=== PATIENT | male | born 1950 | race Caucasian/White ===

== ENCOUNTER 2017-01-12 15:08 | Outpatient (CLI) | payer MEDICARE, BC ==
[2015-03-21 14:21] VITALS: O2SAT 98
== END 2017-01-12 15:09 | disposition home or self-care (01) | DRG 556 ==
LOC: CONVCARE 15:08
PROVIDERS: ATTEND Orthopaedic Surgery
DX: M25.551 Pain in right hip (principal); M48.8X6 Other specified spondylopathies, lumbar region; M51.36 Other intervertebral disc degeneration, lumbar region; M51.37 Other intervertebral disc degeneration, lumbosacral region
CPT/HCPCS: 72120

== ENCOUNTER 2017-02-14 07:23 | Day surgery (SDC) | payer MEDICARE, BC ==
[2017-02-14 07:49] VITALS: O2SAT 95
[2017-02-14] MEDS: TRIAMCINOLONE ACETONIDE 40 MG/ML SUS ONE ×2 (08:13→08:17)
[2017-02-14 08:31] VITALS: BP 106/61; PULSE 69; RESP 20; TEMP 97.4
== END 2017-02-14 08:45 | disposition home or self-care (01) | DRG 552 ==
LOC: SURG 07:23
PROVIDERS: ATTEND Nurse Anesthetist, Certified Registered
DX: M48.06 Spinal stenosis, lumbar region (principal); E11.9 Type 2 diabetes mellitus without complications
CPT/HCPCS: J3300

== ENCOUNTER 2017-03-15 10:57 | Day surgery (SDC) | payer MEDICARE, BC ==
[2017-03-15] MEDS: DEXAMETHASONE SOD PHOS PF 10 MG/ML SOL IJ ONE ×2 (11:28→11:36)
[2017-03-15 11:52] VITALS: BP 95/60; PULSE 77; RESP 20; TEMP 97.9; O2SAT 95
== END 2017-03-15 12:05 | disposition home or self-care (01) | DRG 552 ==
LOC: SURG 10:57
PROVIDERS: ATTEND Nurse Anesthetist, Certified Registered
DX: M54.5 Low back pain (principal); M54.16 Radiculopathy, lumbar region
CPT/HCPCS: 82962; J1100

== ENCOUNTER 2017-05-10 13:53 | Day surgery (SDC) | payer MEDICARE, BC ==
[2017-05-10 14:06] VITALS: RESP 16
[2017-05-10] MEDS ORDERED: BUPIVACAINE HCL 0.25% MPF 10 ML SOL INFIL ONE (14:32)
[2017-05-10] MEDS: DEXAMETHASONE SOD PHOS PF 10 MG/ML SOL IJ ONE ×2 (14:50→14:54)
[2017-05-10 15:18] VITALS: BP 113/73; PULSE 72; TEMP 98.6; O2SAT 98
== END 2017-05-10 15:35 | disposition home or self-care (01) | DRG 552 ==
LOC: SURG 13:53
PROVIDERS: ATTEND Nurse Anesthetist, Certified Registered
DX: M48.062 Spinal stenosis, lumbar region with neurogenic claudication (principal); E11.9 Type 2 diabetes mellitus without complications
CPT/HCPCS: J1100

== ENCOUNTER 2017-10-08 17:40 | Emergency (ER) | payer MEDICARE, BC ==
[2017-10-08 17:56] VITALS: RESP 16; TEMP 99.1
[2017-10-08 19:09] VITALS: BP 127/83; PULSE 78; O2SAT 98
== END 2017-10-08 19:08 | disposition home or self-care (01) | DRG 552 ==
LOC: ED 17:40
DX: M54.5 Low back pain (principal); E11.9 Type 2 diabetes mellitus without complications; W19.XXXA Unspecified fall, initial encounter; R40.2362 Coma scale, best motor response, obeys commands, at arrival to emergency department; R40.2142 Coma scale, eyes open, spontaneous, at arrival to emergency department; R40.2252 Coma scale, best verbal response, oriented, at arrival to emergency department
CPT/HCPCS: 72040; 72120; 99283; 99284; L0130

== ENCOUNTER 2017-10-27 07:25 | Emergency (ER) | payer MEDICARE, BC ==
[2017-10-27 07:53] LABS: BASOPHILS % (AUTO) 1 % (0-3); EOSINOPHILS % (AUTO) 4 % (0-9); HEMATOCRIT 38 % (39-53); HEMOGLOBIN 12.4 gm/dl (13.5-17.7); LYMPHOCYTES % (AUTO) 20.6 % (10-50); MEAN CORPUSCULAR HEMOGLOBIN 25.9 pg (27.0-32.0); MEAN CORPUSCULAR HGB CONC 32.6 gm/dl (32.0-36.0); MONOCYTES % (AUTO) 10.7 % (0-12); NEUTROPHILS % (AUTO) 63.2 % (37-80)
[2017-10-27 07:56] LABS: ABG PH 7.4 (7.35-7.45)
[2017-10-27] MEDS ORDERED: LIDOCAINE HCL 1% MPF 30 SOL ONE (08:05)
[2017-10-27] MEDS ORDERED: LIDOCAINE HCL 2% (100 MG) CARP ONE (08:09)
[2017-10-27] MEDS ORDERED: ATROPINE 0.1 MG/ML SOL ONE (08:09)
[2017-10-27] MEDS ORDERED: SUCCINYLCHOLINE CHLORIDE 20 MG/ML SOL IV ONE (08:10)
[2017-10-27] MEDS ORDERED: ROCURONIUM BROMIDE 10 MG/ML SOL IV ONE ×2 (08:10→08:35)
[2017-10-27] MEDS ORDERED: ETOMIDATE 2 MG/ML SOL IV ONE ×2 (08:10→08:35)
[2017-10-27] MEDS ORDERED: LIDOCAINE HCL 1% MDV 50 ML SOL SC ONE (08:10)
[2017-10-27 08:19] LABS: BLOOD UREA NITROGEN 17 mg/dl (7-18); CALCIUM 8.9 mg/dl (8.5-10.1); CARBON DIOXIDE 27.2 mEq/L (21-32); CHLORIDE 103 mMol/L (98-107); CREATININE 0.68 mg/dl (0.80-1.30); GLOM FILT RATE 116 mL/min (>60); GLUCOSE 175 mg/dl (74-106); MEAN CORPUSCULAR VOLUME 80 fL (80-100); SODIUM 138 mMol/L (136-145); TROP I < 0.017 ng/ml (0.000-0.056)
[2017-10-27 08:44] VITALS: TEMP 95.9
[2017-10-27] MEDS ORDERED: METOPROLOL TARTRATE 5 MG/5 ML SOL IV ONE ×2 (08:45→08:50)
[2017-10-27] MEDS ORDERED: SODIUM CHLORIDE 0.9% 1000ML 1,000 ML IV ONE (08:50)
[2017-10-27] MEDS ORDERED: SODIUM CHLORIDE 0.9% FLUSH 10 ML SOL IV PRN (09:19)
[2017-10-27 10:12] VITALS: BP 132/99; PULSE 124; RESP 89; O2SAT 91
== END 2017-10-27 09:11 | disposition short-term general hospital (02) | DRG 204 ==
LOC: ED 07:25
DX: R06.02 Shortness of breath (principal); T79.7XXA Traumatic subcutaneous emphysema, initial encounter; R00.0 Tachycardia, unspecified; Z90.2 Acquired absence of lung [part of]; E11.9 Type 2 diabetes mellitus without complications
CPT/HCPCS: 31500; 36415; 36600; 71045; 80048; 82803; 84484; 85025; 93005; 96365; 96374; 96375; 99291; J0330; J0461; J2001; L0130; A4450; A6402; A9270-GY; J3490